=== PATIENT | male | born 1930 | race Caucasian/White ===

== ENCOUNTER 2017-09-10 07:49 | Day surgery (SDC) | payer MEDICARE ==
[~2017-09-10 07:49] MED LIST: Acetaminophen TAB* 325 MG PO PRN; Buffered Lidocaine 0.9% SYRIN* 5 ML/SYR SYRINGE INTRADERM ONE
[2017-09-10] MEDS ORDERED: Midazolam* 1 MG/ML 2 ML VIAL (2 MG) ONE (09:24)
[2017-09-10] MEDS ORDERED: Phenylephrine 2.5% OPTH.SOL* 2 ML BTL ONE (09:33)
[2017-09-10] MEDS ORDERED: Neomycin/Polymy/Dex OPHTH.OIN* 3.5 GM ONE (09:33)
[2017-09-10] MEDS ORDERED: Lidocaine 1% MPF* 2 ML VIAL ONE (09:33)
[2017-09-10] MEDS ORDERED: Buffered Lidocaine 0.9% SYRIN* 5 ML/SYR SYRINGE ONE (09:33)
[2017-09-10] MEDS ORDERED: Tropicamide 1% OPTH.SOL* BTL ONE (09:33)
[2017-09-10] MEDS ORDERED: Tetracaine 0.5% OPTH.SOL 4 ML* 1 DROP BTL ONE (09:33)
[2017-09-10] MEDS ORDERED: Flurbiprofen 0.03% OPTH.SOL* 2.5 ML BTL ONE (09:33)
[2017-09-10] MEDS ORDERED: Cyclopentolate 1% OPTH.SOL* 2 ML BTL ONE (09:33)
--- NOTE | 2017-09-10 09:57 | OP ---
DATE OF OPERATION/DATE OF DICTATION: 09/10/[address] - [facility] DATE OF : 1930. SURGEON: Dr. Maury Cervantes. DESIGN TEACHER: None. ANESTHESIOLOGIST: Sanjay Britt DO ANESTHESIA: Topical with intravenous sedation. PRE-OP DIAGNOSIS: Cataract, right eye. POST-OP DIAGNOSIS: Cataract, right eye. OPERATIVE PROCEDURE: Phacoemulsification and cataract extraction with posterior chamber intraocular lens implant, right eye. COMPLICATIONS: None. BLOOD LOSS: None. DESCRIPTION OF PROCEDURE: The patient was brought to the operating room and received a small amount of intravenous sedation. A drop of Tetracaine was placed in his right eye. He was prepped and draped in the usual sterile fashion for ophthalmic surgery and attention was directed to the right eye where a speculum was placed. A paracentesis was created at the 11 o'clock position and 0.1 cc of 1 percent preservative-free Lidocaine was injected into the anterior chamber followed by DisCoVisc. The eye was digitally stabilized while a 2.75 mm keratome was used to create a triplanar clear corneal incision at the 9 o'clock position. A continuous curvilinear capsulorrhexis was created with a cystotome and Utrata forceps. BSS on a cannula was used to hydrodissect the lens from the capsule. Phacoemulsification was performed in a divide-and- conquer technique to create four fragments which were removed. Residual cortical material was removed with irrigation and aspiration. DisCoVisc was used to inflate the capsular bag and an AUOOTO 20.5 diopter lens was folded and inserted into the capsular bag. DisCoVisc was removed using irrigation and aspiration. BSS on a cannula was used to hydrate the corneal stroma and seal the wound. At the end of the case the pupil was round and the lens was centered. The eye was of normal pressure and the wound was water tight. The speculum was removed and topical Maxitrol ointment was placed on the surface of the eye. The eye was closed, patched and shielded and the patient was sent to the recovery room in stable condition with post operative instructions and follow-up appointment given. [id number]/[id number] #: [id number] MTDD
[2017-09-10 10:04] VITALS: BP 103/88
== END 2017-09-10 10:09 | disposition home or self-care (01) ==
LOC: OREAST 07:49
PROVIDERS: ATTEND Ophthalmology
DX: H25.11 Age-related nuclear cataract, right eye (principal); I48.91 Unspecified atrial fibrillation; Z79.01 Long term (current) use of anticoagulants; I49.5 Sick sinus syndrome; E78.00 Pure hypercholesterolemia, unspecified; Z85.038 Personal history of other malignant neoplasm of large intestine; Z95.0 Presence of cardiac pacemaker; I10 Essential (primary) hypertension; G47.33 Obstructive sleep apnea (adult) (pediatric)
CPT/HCPCS: A9270-GY; J2250; V2632

== ENCOUNTER 2017-11-15 07:32 | Emergency (ER) | payer MEDICARE ==
[2017-11-15 11:24] LABS: ABS Basophils 0 10^3/ul (0-0.2); ABS Eosinophils 0 10^3/ul (0-0.6); ABS Monocytes 1.6 10^3/ul (0-0.8); ABS Neutrophils 3.7 10^3/ul (1.5-7.7); ABS Nucleated RBC 0 10^3/ul; Eosinophil % 0.1 % (0-6); Hematocrit 29 % (42-52); Hemoglobin 9.6 g/dl (14.0-18.0); Lymphocyte % 15.7 % (25-47); Mean Corpuscular HGB Conc 34 g/dl (31-36); Mean Corpuscular Hemoglobin 31 pg (27-31); Mean Corpuscular Volume 93 fL (80-94); Mean Platelet Volume 11 um3 (7.4-10.4); Nucleated Red Blood Cells % 0; Platelet Count 70 10^3/ul (150-450); Red Cell Distribution Width 14 % (10.5-15); White Blood Count 6.3 10^3/ul (3.5-10.8)
[2017-11-15 11:36] LABS: EGFR Non-African American 58.5 (>60)
[2017-11-15 11:46] LABS: INR 4.23 (0.77-1.02)
--- NOTE | 2017-11-15 13:22 | RAD ---
Indication: Left upper extremity swelling. Duplex Doppler sonography of the left upper extremity venous system was performed. The internal jugular veins demonstrates normal phasic flow. Subclavian vein demonstrates successful augmentation and normal phasic flow. The left basilic vein, brachial vein, axillary vein, cephalic vein, radial vein and ulnar vein appears patent and compressible. There is a large hypoechoic mass in the proximal left humerus with heterogeneous echotexture measuring 6.3 x 3.1 x 7.0 cm. This is consistent with a hematoma. IMPRESSION: No evidence of deep venous thrombosis of left upper extremity. Likely Hematoma in the left proximal humerus.
[2017-11-15 13:43] VITALS: BP 119/62
--- NOTE | 2017-11-15 16:16 | ED ---
Andres King Julia, scribed for Jovana Dong MD on 11/15/17 at 0915 . Upper Extremity Pain - HPI Summary HPI Summary: This patient is a 87 year old M BIBA to [facility] accompanied by his friends with a chief complaint of worsening severe swelling and bruising in his L shoulder and arm since three days ago when he heard a pop when reaching. Patient denies losing LUE motion, headache, hematuria, LE edema, blurry or double vision, back pain, abdominal pain, chest pain, SOB, bowel symptoms, ear ache, or sore throat.. Symptoms aggravated by nothing. Symptoms alleviated by nothing. Patient takes 6mg of Coumadin daily. Patient has a history of a-fib and has a pacemaker. - History of Current Complaint Chief Complaint: EDExtremityUpper Stated Complaint: LEFT ARM INJURY Time Seen by Provider: 11/15/17 07:41 Hx Obtained From: Patient Onset/Duration: Started Days Ago Timing: Constant Pain Location: Shoulder, Arm, Forearm Character: Unable to Describe - swelling and bruising Aggravating Factor(s): Nothing Alleviating Factor(s): Nothing Associated Signs & Symptoms: Positive: Swelling, Bruising - Allergies/Home Medications Allergies/Adverse Reactions: Allergies Allergy/AdvReac Type Severity Reaction Status Date / Time No Known Allergies Allergy Verified 11/15/17 07:38 PMH/Surg Hx/FS Hx/Imm Hx Endocrine/Hematology History: Denies: Hx Diabetes, Hx Systemic Lupus Erythematosus Cardiovascular History: Reports: Hx Atrial Fibrillation, Hx Pacemaker/ICD - 5/ /15, Hx Syncope, Hx Valvular Heart Disease - tricuspid regurgitation, Other Cardiovascular Problems/Disorders - per pt leak in heart valve and on coumadin for this Denies: Hx Congestive Heart Failure, Hx Hypertension Respiratory History: Reports: Hx Sleep Apnea GI History: Reports: Other GI Disorders - colon ca History: Denies: Hx Dialysis, Hx Renal Disease Musculoskeletal History: Denies: Hx Rheumatoid Arthritis Sensory History: Reports: Hx Cataracts - right, Hx Contacts or Glasses Denies: Hx Hearing Aid Opthamlomology History: Reports: Hx Cataracts - right, Hx Contacts or Glasses - Cancer History Cancer Type, Location and Year: colon ca, 2011 Hx Chemotherapy: No - Surgical History Surgery Procedure, Year, and Place: Colon ressection, 2011, [facility] [place]. Hernia repair , 1995, unknown Hx Anesthesia Reactions: No Infectious Disease History: No Infectious Disease History: Denies: Hx Clostridium Difficile, Hx Hepatitis, Hx Human Immunodeficiency Virus (HIV), Hx of Known/Suspected MRSA, Hx Shingles, Hx Tuberculosis, Hx Known/ Suspected VRE, Hx Known/Suspected VRSA, History Other Infectious Disease, Traveled Outside the [place] in Last 30 Days - Social History Alcohol Use: None Substance Use Type: Reports: None Hx Tobacco Use: Yes Smoking Status (MU): Former Smoker Amount Used/How Often: SOCIAL X 2-3 YEARS Review of Systems Negative: Blurred Vision Negative: Sore Throat, Ear Ache Negative: Chest Pain Negative: Shortness Of Breath Gastrointestinal: Negative - bowel symptoms Negative: Abdominal Pain Negative: hematuria Musculoskeletal: Negative - back pain and LE edema Positive: Edema - and bruising from L shoulder to wrist Negative: Headache All Other Systems Reviewed And Are Negative: No Physical Exam - Summary Physical Exam Summary: Appearance: Alert, conversive, nontoxic appearing Skin: Warm, dry, no mottling, no rashes, no contusions HEENT: EOMI, PERRL, moist mucous membranes Neck: No masses on the neck, supple Respiratory: Clear to auscultation, breath sounds present, no rales, no rhonchi , no wheezes Cardiovascular: RRR, pulses are symmetrical in both lower and upper extremities Abdomen: Soft, non-tender Bowel Sounds: Present Musculoskeletal: No CVA tenderness, no obvious deformity, moving all extremities in a grossly normal manner, with mild L arm extension restriction, bruising from L chest wall to L wrist Neurological: A&Ox3, CN II-XII Intact, moving all extremities symmetrically Psychiatric: Normal affect and mood Triage Information Reviewed: Yes Vital Signs On Initial Exam: Initial Vitals Temp Pulse Resp BP Pulse Ox 96.8 F 80 16 130/54 99 11/15/17 07:39 11/15/17 07:39 11/15/17 07:39 11/15/17 07:39 11/15/17 07:39 Vital Signs Reviewed: Yes - [place] Coma Scale Coma Scale Total: 15 Diagnostics - Vital Signs Vital Signs Temp Pulse Resp BP Pulse Ox 11/15/17 07:39 96.8 F 80 16 130/54 99 - Laboratory Result Diagrams: 11/15/17 11:15 11/15/17 11:15 Lab Statement: Any lab studies that have been ordered have been reviewed, and results considered in the medical decision making process. - Additional Comments Diagnostic Additional Comments: Venous US to RUE reveals No evidence of deep venous thrombosis of left upper extremity. Likely Hematoma in the left proximal humerus. Ed Physician has reviewed this report. Re-Evaluation - Re-Evaluation 1 Re-Evaluation Time: 10:40 Change: Unchanged Comment: Labs not drawn yet due to US in progress. 2 Re-Evaluation Time: 13:00 Change: Unchanged Comment: Patient was informed of INR levels and was instructed to disocntinue coumadin use for 2 days. Pt was updated and awaiting US report. Course/Dx - Course Course Of Treatment: Patient presented with severe ecchymosis from L chest wall to L wrist after shoulder injury three days ago. Patient currently take 6mg of coumadin daily. INR revealed 4.23, and patient was instructed to discontinue coumadin use for 2 days. Venous US reveals no concern for DVT. - Diagnoses Provider Diagnoses: Hematoma, Elevated INR Discharge - Discharge Plan Condition: Stable Disposition: HOME Patient Education Materials: Elevated INR (ED), Hematoma (ED) Referrals: Sonia Avendaño MD [Primary Care Provider] - Additional Instructions: HOLD your coumadin for 2 days. get your INR rechecked on Saturday. Keep your left arm elevated. you may use cushions or a pillow to help elevate it above the level of your heart. return if worse or any new symptoms. you may take tylenol for pain. The documentation as recorded by the Andres cesar Julia accurately reflects the service I personally performed and the decisions made by me, Jovana Dong MD.
== END 2017-11-15 13:44 | disposition home or self-care (01) ==
LOC: ED 07:32
DX: R60.9 Edema, unspecified (principal); Z87.891 Personal history of nicotine dependence; S20.212A Contusion of left front wall of thorax, initial encounter; Z79.01 Long term (current) use of anticoagulants; X58.XXXA Exposure to other specified factors, initial encounter; Y92.9 Unspecified place or not applicable
CPT/HCPCS: 36415; 80053; 85025; 85610; 85730; 99282

== ENCOUNTER 2017-11-17 05:27 | Emergency (ER) | payer MEDICARE ==
--- NOTE | 2017-11-17 06:37 | ED ---
Oleg King Rebecca, scribed for Benigno Cardozo MD on 11/17/17 at 0537 . Lower Extremity - HPI Summary HPI Summary: Pt is an 87 y/o M BIBA who presents to ED c/o L knee pain. Pt reports that this morning, he was getting up from the couch when he "made a wrong move" and "had a terrible pain." Reports that "something snapped." On arrival, pain is resolved , currently ranked 0/10. Sx aggravated by movement, alleviated by rest. Denies any other symptoms. Confirms he is able to bear weight and was able to walk outside. - History of Current Complaint Chief Complaint: EDExtremityLower Stated Complaint: LT KNEE PAIN Time Seen by Provider: 11/17/17 05:32 Hx Obtained From: Patient Mechanism Of Injury: Other - "wrong move" Onset of Pain: Prior to Arrival Severity Initially: Severe Severity Currently: None Pain Intensity: 0 Pain Scale Used: 0-10 Numeric Location: Is Discrete @ - L knee Associated Signs And Symptoms: Positive: Negative Aggravating Factor(s): Movement Alleviating Factor(s): Rest Able to Bear Weight: Yes - Allergies/Home Medications Allergies/Adverse Reactions: Allergies Allergy/AdvReac Type Severity Reaction Status Date / Time No Known Allergies Allergy Verified 11/17/17 05:32 PMH/Surg Hx/FS Hx/Imm Hx Endocrine/Hematology History: Denies: Hx Diabetes, Hx Systemic Lupus Erythematosus Cardiovascular History: Reports: Hx Atrial Fibrillation, Hx Pacemaker/ICD - 5/15, Hx Syncope, Hx Valvular Heart Disease - tricuspid regurgitation, Other Cardiovascular Problems/Disorders - per pt leak in heart valve and on coumadin for this Denies: Hx Congestive Heart Failure, Hx Hypertension Respiratory History: Reports: Hx Sleep Apnea GI History: Reports: Other GI Disorders - colon ca History: Denies: Hx Dialysis, Hx Renal Disease Musculoskeletal History: Denies: Hx Rheumatoid Arthritis Sensory History: Reports: Hx Cataracts - right, Hx Contacts or Glasses Denies: Hx Hearing Aid Opthamlomology History: Reports: Hx Cataracts - right, Hx Contacts or Glasses - Cancer History Cancer Type, Location and Year: colon ca, 2011 Hx Chemotherapy: No - Surgical History Surgery Procedure, Year, and Place: Colon ressection, 2011, [facility] [place]. Hernia repair , 1995, unknown Hx Anesthesia Reactions: No Infectious Disease History: No Infectious Disease History: Denies: Hx Clostridium Difficile, Hx Hepatitis, Hx Human Immunodeficiency Virus (HIV), Hx of Known/Suspected MRSA, Hx Shingles, Hx Tuberculosis, Hx Known/ Suspected VRE, Hx Known/Suspected VRSA, History Other Infectious Disease, Traveled Outside the [place] in Last 30 Days - Family History Known Family History: Positive: Cardiac Disease, Hypertension, Diabetes - Social History Alcohol Use: None Substance Use Type: Reports: None Hx Tobacco Use: Yes Smoking Status (MU): Former Smoker Amount Used/How Often: SOCIAL X 2-3 YEARS Review of Systems Negative: Fever Positive: Other - L knee pain All Other Systems Reviewed And Are Negative: Yes Physical Exam - Summary Physical Exam Summary: VITAL SIGNS: Reviewed. GENERAL: Patient is a well-developed and nourished male who is lying comfortable in the stretcher. Patient is not in any acute respiratory distress. HEAD AND FACE: No signs of trauma. No ecchymosis, hematomas or skull depressions. No sinus tenderness. EYES: PERRLA, EOMI x 2, No injected conjunctiva, no nystagmus. EARS: Hearing grossly intact. Ear canals and tympanic membranes are within normal limits. MOUTH: Oropharynx within normal limits. NECK: Supple, trachea is midline, no adenopathy, no JVD, no carotid bruit, no c- spine tenderness, neck with full ROM. CHEST: Symmetric, no tenderness at palpation LUNGS: Clear to auscultation bilaterally. No wheezing or crackles. CVS: Regular rate and rhythm, S1 and S2 present, no murmurs or gallops appreciated. ABDOMEN: Soft, non-tender. No signs of distention. No rebound no guarding, and no masses palpated. Bowel sounds are normal. EXTREMITIES: FROM in all major joints, no edema, no cyanosis or clubbing. L knee is swollen, but there is no effusion with FROM and no tenderness. NEURO: Alert and oriented x 3. No acute neurological deficits. Speech is normal and follows commands. SKIN: Dry and warm, pale. Coagulopathy of the left arm. Triage Information Reviewed: Yes Vital Signs On Initial Exam: Initial Vitals Temp Pulse Resp BP Pulse Ox 97.3 F 108 16 131/72 100 11/17/17 05:30 11/17/17 05:30 11/17/17 05:30 11/17/17 05:30 11/17/17 05:30 Vital Signs Reviewed: Yes Diagnostics - Vital Signs Vital Signs Temp Pulse Resp BP Pulse Ox 11/17/17 05:30 97.3 F 108 16 131/72 100 - Laboratory Lab Statement: Any lab studies that have been ordered have been reviewed, and results considered in the medical decision making process. - Radiology L Knee XR Xray Interpretation: No Acute Changes - No fracture. Radiology Interpretation Completed By: ED Physician Re-Evaluation - Re-Evaluation First Eval Re-Evaluation Time: 06:28 Change: Improved Comment: Pt is feeling better and able to ambulate at his baseline. Lower Extremity Course/Dx - Course Assessment/Plan: Pt is an 87 y/o M BIBA who presents to ED c/o L knee pain. Pt reports that this morning, he was getting up from the couch when he "made a wrong move" and "had a terrible pain." On arrival, pain is resolved, currently ranked 0/10. Sx aggravated by movement, alleviated by rest. Confirms he is able to bear weight and was able to walk outside. L knee XR reveals no fracture. Pt will be D/C to home with Dx of likely muscle spasms. He understands and agrees. - Diagnoses Provider Diagnoses: Muscle spasm Discharge - Discharge Plan Condition: Stable Disposition: HOME Patient Education Materials: Muscle Spasm (ED) Referrals: Sonia Avendaño MD [Primary Care Provider] - 3 Days Additional Instructions: RETURN TO EMERGENCY DEPARTMENT FOR ANY NEW OR WORSENING SYMPTOMS The documentation as recorded by the Oleg cesar Rebecca accurately reflects the service I personally performed and the decisions made by me, Benigno Cardozo MD.
[2017-11-17 07:38] VITALS: BP 0/0
--- NOTE | 2017-11-17 08:30 | RAD ---
HISTORY: Left knee pain COMPARISONS: None VIEWS: 4, Frontal, lateral, axial, and oblique views of the left knee FINDINGS: BONE DENSITY: Normal. BONES: There is no displaced fracture. JOINTS: There is mild patellofemoral osteophyte formation. There is mild medial and lateral compartment joint space narrowing. There is no suprapatellar joint effusion or lipohemarthrosis. ALIGNMENT: There is no dislocation. SOFT TISSUES: Unremarkable. OTHER FINDINGS: None. IMPRESSION: MILD OSTEOARTHRITIS. NO ACUTE OSSEOUS INJURY. IF SYMPTOMS PERSIST, RECOMMEND REPEAT IMAGING.
== END 2017-11-17 07:37 | disposition home or self-care (01) ==
LOC: ED 05:27
DX: M62.838 Other muscle spasm (principal); Z87.891 Personal history of nicotine dependence; M17.12 Unilateral primary osteoarthritis, left knee
CPT/HCPCS: 99281

== ENCOUNTER 2017-11-24 09:50 | Inpatient (IN) | payer MEDICARE ==
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
[2017-11-24 12:03] LABS: Hematocrit 28 % (42-52); Hemoglobin 9.1 g/dl (14.0-18.0); Mean Corpuscular HGB Conc 33 g/dl (31-36); Mean Corpuscular Hemoglobin 32 pg (27-31); Mean Corpuscular Volume 96 fL (80-94); Mean Platelet Volume 9 um3 (7.4-10.4); Platelet Count 141 10^3/ul (150-450); Red Blood Count 2.88 10^6/ul (4.0-5.4); Red Cell Distribution Width 15 % (10.5-15)
[2017-11-24 12:15] LABS: Urine Appearance Clear; Urine Blood 1+ (Negative); Urine Color Yellow; Urine Ketones Negative (Negative); Urine Protein Negative (Negative); Urine Specific Gravity 1.018 (1.010-1.030); Urine Urobilinogen Negative (Negative)
[2017-11-24 12:18] LABS: EGFR Non-African American 67.7 (>60)
[2017-11-24 12:40] LABS: INR 1.15 (0.77-1.02)
[2017-11-24 12:47] LABS: ABS Basophils 0 10^3/ul (0-0.2); ABS Eosinophils 0 10^3/ul (0-0.6); ABS Lymphocytes 0.9 10^3/ul (1.0-4.8); ABS Monocytes 1.6 10^3/ul (0-0.8); ABS Neutrophils 3.4 10^3/ul (1.5-7.7); ABS Nucleated RBC 0 10^3/ul; Eosinophil % 0.3 % (0-6); Lymphocyte % 14.5 % (25-47); Nucleated Red Blood Cells % 0.1
--- NOTE | 2017-11-24 13:41 | RAD ---
INDICATION: Left leg numbness COMPARISON: CT brain February 16, 2016 TECHNIQUE: Noncontrast axial source images were acquired from the skull base to the vertex. FINDINGS: Ventricles/sulci: The ventricles and cisterns are normal in size and configuration for age. Brain parenchyma: There is a nonhemorrhagic subacute infarct in the left lentiform nucleus. There is no intracranial mass effect. There are additional areas of underlying chronic microvascular ischemic change in the periventricular and subcortical white matter. Intracranial hemorrhage:None. Extra-axial spaces: There are no abnormal extra axial fluid collections or evidence of extra-axial mass. Calvarium: There is no calvarial fracture or other calvarial abnormality. Scalp: There is no evidence of scalp or extracalvarial soft tissue abnormality. Paranasal sinuses/mastoid: The paranasal sinuses and mastoid air cells are clear. Other: None. IMPRESSION: Subacute nonhemorrhagic infarct left lentiform nucleus. Underlying chronic microvascular change
--- NOTE | 2017-11-24 14:03 | RAD ---
INDICATION: Dyspnea on exertion COMPARISON: November 21, 2017 TECHNIQUE: PA and lateral dual-energy views were obtained. FINDINGS: Bones/Soft Tissues: There are no acute bony findings. There is left-sided cardiac pacemaker Cardiomediastinal: The cardiomediastinal silhouette is normal. The pulmonary vascularity is normal. Lungs: There are no infiltrates. There is mild hyperinflation. Pleura: There are no pleural effusions. Other: None IMPRESSION: HYPERINFLATION. NO ACTIVE DISEASE.
--- NOTE | 2017-11-24 14:48 | RAD ---
INDICATION: Pain and swelling. COMPARISON: November 15, 2017 TECHNIQUE: Duplex interrogation of the Lowerextremity was performed. FINDINGS: Deep veins: The visualized jugular, visualized subclavian, axillary, brachial, radial, and ulnar are patent. There is normal compressibility, augmentation, and phasic flow. Superficial veins: There are no findings of superficial thrombophlebitis. The cephalic and basilic veins are patent Popliteal fossa:There is no evidence of a popliteal cyst. Soft tissues:There is subcutaneous edema. The previously identified hematoma was not imaged today. IMPRESSION: No evidence of deep venous thrombosis
[2017-11-24] MEDS ORDERED: Aspirin Low Dose CHEW TAB* 81 MG PO SCH (15:00)
[2017-11-24] MEDS: Tamsulosin CAP* 0.4 MG PO SCH (17:03)
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
[2017-11-25 06:20] LABS: Hematocrit 28 % (42-52); Hemoglobin 9.2 g/dl (14.0-18.0); Mean Corpuscular HGB Conc 33 g/dl (31-36); Mean Corpuscular Hemoglobin 31 pg (27-31); Mean Corpuscular Volume 95 fL (80-94); Mean Platelet Volume 10 um3 (7.4-10.4); Platelet Count 134 10^3/ul (150-450); Red Blood Count 2.93 10^6/ul (4.0-5.4); Red Cell Distribution Width 16 % (10.5-15); White Blood Count 5.6 10^3/ul (3.5-10.8)
[2017-11-25 07:32] LABS: ABS Basophils 0 10^3/ul (0-0.2); ABS Eosinophils 0 10^3/ul (0-0.6); ABS Lymphocytes 1.2 10^3/ul (1.0-4.8); ABS Monocytes 1.5 10^3/ul (0-0.8); ABS Neutrophils 2.8 10^3/ul (1.5-7.7); ABS Nucleated RBC 0 10^3/ul; Eosinophil % 0.3 % (0-6); Lymphocyte % 21.1 % (25-47); Nucleated Red Blood Cells % 0
--- NOTE | 2017-11-25 08:58 | RAD ---
HISTORY: Subacute infarct COMPARISONS: CT dated November 24, 2017 TECHNIQUE: The following sequences were obtained of the head: Sagittal T1-weighted images, axial T2-weighted images, axial FLAIR images, axial susceptibility weighted images, axial T1-weighted images. Additionally, axial diffusion-weighted images were obtained with calculated apparent diffusion coefficients. Additionally, sagittal, coronal, and axial T1-weighted images were obtained after contrast enhancement with a gadolinium-based intravenous contrast agent. FINDINGS: HEMORRHAGE/INFARCT: There is high T1 and high T2 signal lesion with susceptibility artifact within the left basal ganglia corresponding to the area of previous infarction, consistent with hemorrhagic conversion. The area of hemorrhage measures approximately 1.3 cm in size within the left basal ganglia. Elsewhere, there is no hemorrhage or acute infarction. MASSES/SHIFT: There is no mass or shift. EXTRA-AXIAL SPACES/MENINGES: There are no extra-axial fluid collections. SULCI AND VENTRICLES: There is diffuse and proportional enlargement of the sulci and ventricles. CEREBRUM: As noted above, there is a focus of hemorrhage within the left basal ganglia. There is multifocal elevated T2/FLAIR signal in the periventricular and subcortical white matter. BRAINSTEM: There are no focal parenchymal abnormalities. CEREBELLUM: There are no focal parenchymal abnormalities. The cerebellar tonsils are normal in size and position. SELLA: The sella is normal. PINEAL: The pineal region is clear. CP ANGLE/TEMPORAL BONES: The labyrinthine structures are grossly normal. VESSELS: Normal flow-voids are noted within the visualized vertebral vasculature. DIFFUSION ABNORMALITIES: There is restricted diffusion within the left basal ganglia consistent with subacute infarct. PARANASAL SINUSES/MASTOIDS: The paranasal sinuses are clear. ORBITS: The orbits are unremarkable. BONES AND SOFT TISSUE: No bone or soft tissue abnormalities are noted. OTHER: None IMPRESSION: 1. THERE HAS BEEN HEMORRHAGIC CONVERSION OF THE LEFT BASAL GANGLIA INFARCT. 2. DIFFUSE INVOLUTIONAL CHANGE. 3. NONSPECIFIC WHITE MATTER CHANGES, SUGGESTIVE OF CHRONIC SMALL VESSEL ISCHEMIA. PRELIMINARY FINDINGS WERE DISCUSSED WITH DR. ANDERSON AT APPROXIMATELY 8:55 AM ON NOVEMBER 25, 2017.
[2017-11-25] MEDS: Metoprolol Tartrate TAB* 25 MG PO SCH (13:06)
[2017-11-25] MEDS: Tamsulosin CAP* 0.4 MG PO SCH (13:06)
[2017-11-25] MEDS: Aspirin Low Dose CHEW TAB* 81 MG PO SCH (13:06)
--- NOTE | 2017-11-25 15:36 | ECHO ---
Patient: PO GONZALEZ [facility] Rec#: [id number] : 1930 Date: 11/25/2017 Age: 87y Height: 172.7 cm / 68.0 in Weight: 81.7 kg / 180.1 lbs Sex: M BSA: 2 Room#: [facility] Admit Date#: 11/24/2017 Type: Inpatient Referring: Dank Cordero Reading: Calvin Acosta MD Transformer Tester: Magui Spann RN RDCS CC: Sonia Avendaño MD CC: Lita Corona MD Transthoracic Echocardiogram Indication: Dyspnea on exertion BP: 102/37 HR: 101 Rhythm: A-Fib Findings History: A. fib, pacemaker, HLD, syncope, sleep apnea, colon cancer Technical Comments: The study quality is fair. Completed at 1325. Left Ventricle: The left ventricular chamber size is normal. Mild concentric left ventricular hypertrophy is observed. Global left ventricular wall motion and contractility are within normal limits. There is normal left ventricular systolic function. The estimated ejection fraction is 55-60%. The assessment of diastolic function is non-diagnostic. Left Atrium: The left atrium is severely dilated. Right Ventricle: The right ventricular cavity size is normal. The right ventricular global systolic function is normal. A pacemaker wire is visualized in the right ventricle. Right Atrium: The right atrial cavity size is severely dilated. A pacemaker wire is visualized in the right atrium. Aortic Valve: The aortic valve is trileaflet. The aortic valve leaflets are mildly thickened. There is mild to moderate aortic regurgitation. There is no evidence of aortic stenosis. Mitral Valve: The mitral valve leaflets are mildly thickened. There is mild to moderate mitral regurgitation. There is no evidence of mitral stenosis. Tricuspid Valve: The tricuspid valve leaflets are normal. There is moderate tricuspid regurgitation. No pulmonary hypertension is noted. There is no tricuspid stenosis. Pulmonic Valve: The pulmonic valve structure is not well visualized. There is trace to mild pulmonic regurgitation. There is no pulmonic stenosis. Pericardium: There is no significant pericardial effusion. Aorta: There is mild dilatation of the ascending aorta. There is no dilatation of the aortic arch. There is no dilation of the aortic root. Pulmonary Artery: The main pulmonary artery is not well visualized. Venous: The inferior vena cava appears normal in size. There is a greater than 50% respiratory change in the inferior vena cava dimension. Summary: There are no significant changes when compared to the previous study done on 02/17/16 Conclusions Global left ventricular wall motion and contractility are within normal limits. There is normal left ventricular systolic function. The estimated ejection fraction is 55-60%. The right ventricular global systolic function is normal. There is mild to moderate aortic regurgitation. There is mild to moderate mitral regurgitation. There is moderate tricuspid regurgitation. No pulmonary hypertension is noted. There is no significant pericardial effusion. The left atrium is severely dilated. There are no significant changes when compared to the previous study done on 02/17/16 Measurements Name Value Normal Range RVDdMajor (2D) 3.1 cm (2.2 - 4.4) RAd ISD 4CH 7.4 cm (3.4 - 4.9) RA (A4C)W 5.6 cm (2.9 - 4.6) IVSd (2D) 1.1 cm (0.6 - 1) LVPWd (2D) 1.1 cm (0.6 - 1) LVIDd (2D) 4 cm (3.6 - 5.4) LVIDs (2D) 2.9 cm - LV FS (2D) 28 % (25 - 45) Aortic Annulus 2 cm (1.4 - 2.6) Ao root diameter (2D) 3.2 cm (2.1 - 3.5) Ascending Ao 3.6 cm (2.1 - 3.4) Aortic arch 2.2 cm (1.8 - 3.4) LA dimension (AP) 2D 4.6 cm (2.3 - 3.8) LAd ISD 4CH 7 cm (2.9 - 5.3) LA ISD 4CH W 5.6 cm (2.5 - 4.5) Name Value Normal Range LA ESV SP 4CH (A/L) 110 ml - LA ESV SP 2CH (A/L) 108 ml - LA ESV BP (A/L) 110 ml - LA ESV BP (A/L) index 56 ml/m2 - LA ESV SP 4CH (MOD) 104 ml - LA ESV SP 2CH (MOD) 105 ml - Name Value Normal Range MV E-wave Vmax 1.1 m/sec - MV deceleration time 177 msec - LV septal e' Vmax 0.12 m/sec - LV lateral e' Vmax 0.13 m/sec - LV E:e' septal ratio 9.2 ratio - LV E:e' lateral ratio 8.5 ratio - Name Value Normal Range AV Vmax 1.6 m/sec - AV VTI 31.4 cm - AV peak gradient 9.7 mmHg - AV mean gradient 6.2 mmHg - LVOT Vmax 0.86 m/sec - LVOT VTI 16.6 cm - LVOT peak gradient 3 mmHg - LVOT mean gradient 1.8 mmHg - AR PHT 439 msec - RENE Vmax 0.59 m/sec - Name Value Normal Range TR Vmax 2.6 m/sec - TR peak gradient 27 mmHg - RAP 3 mmHg - RVSP 30 mmHg - IVC diameter 1.7 cm - Name Value Normal Range PV Vmax 0.76 m/sec -
--- NOTE | 2017-11-25 18:40 | PN ---
Subjective Date of Service: 11/25/17 Interval History: CTH with subacute CVA, MRI this AM showed hemorrhagic conversion. was not dyspneic with exertion with PT. ECHO repeated and unchanged. Objective Active Medications: Aspirin (Aspirin Low Dose Tab*) 81 mg PO DAILY [facility] Last Admin: 11/25/17 13:06 Dose: 81 mg Metoprolol Tartrate (Lopressor Tab*) 37.5 mg PO QAM [facility] Last Admin: 11/25/17 13:06 Dose: 37.5 mg Tamsulosin HCl (Flomax Cap*) 0.4 mg PO DAILY [facility] Last Admin: 11/25/17 13:06 Dose: 0.4 mg Vital Signs - 8 hr 11/25/17 11/25/17 11:05 15:45 Temperature 97.8 F 98.2 F Pulse Rate 101 78 Respiratory 16 20 Rate Blood Pressure 125/56 101/57 (mmHg) O2 Sat by Pulse 100 100 Oximetry Oxygen Devices in Use Now: None Appearance: NAD Eyes: No Scleral Icterus, PERRLA Ears/Nose/Mouth/Throat: NL Teeth, Lips, Gums, Mucous Membranes Moist Neck: NL Appearance and Movements; NL JVP, Trachea Midline Respiratory: Symmetrical Chest Expansion and Respiratory Effort, Clear to Auscultation Cardiovascular: - - irregularly irregular, no m/r/g Abdominal: NL Sounds; No Tenderness; No Distention, No Hepatosplenomegaly Extremities: No Clubbing, Cyanosis, - - nonpitting edema in left hand. Skin: No Nodules or Sclerosis, - - ecchymosis abdomen, left arm(improving). Neurological: Alert and Oriented x 3, NL Sensation, NL Muscle Strength and Tone Nutrition: Taking PO's Result Diagrams: 11/25/17 05:36 11/24/17 11:40 Additional Lab and Data: Laboratory Results - last 24 hr 11/25/17 11/25/17 11/25/17 05:36 05:36 05:36 WBC 5.6 RBC 2.93 L Hgb 9.2 L Hct 28 L MCV 95 H MCH 31 MCHC 33 RDW 16 H Plt Count 134 L MPV 10 Neut % (Auto) 50.5 Lymph % (Auto) 21.1 L [place] % (Auto) 27.8 H Eos % (Auto) 0.3 Baso % (Auto) 0.3 Absolute Neuts (auto) 2.8 Absolute Lymphs (auto) 1.2 Absolute Monos (auto) 1.5 H Absolute Eos (auto) 0 Absolute Basos (auto) 0 Absolute Nucleated RBC 0 Nucleated RBC % 0 Hemoglobin A1c 5.1 Triglycerides 83 Cholesterol 135 LDL Cholesterol 83 HDL Cholesterol 35.6 Assess/Plan/Problems-Billing Assessment: 87 yo male PMH pAfib until 12 days prior to admission on coumadin, but developed hematoma left UE while INR 4, SSS s/p PPM (MRI safe), EDWARD p/w OJ. Found to have left basal ganglia subacute CVA on CTH with some hemorrhagic conversion on MRI. - Patient Problems (1) CVA (cerebrovascular accident) Current Visit: Yes Status: Acute Code(s): I63.9 - CEREBRAL INFARCTION, UNSPECIFIED SNOMED Code(s): 303962030 Comment: continue aspirin 81mg daily appreciate neurology recommendations Dr. Navarro to discuss with Dr. Corona about possibility of Eliquis starting 2 weeks after suspected hemorrhagic conversion, approximately 7 days from now based off imaging findings. repeat CTH in 11/26 AM to see if progression PT -> did well. no needs. (2) Afib Current Visit: No Status: Acute Code(s): I48.91 - UNSPECIFIED ATRIAL FIBRILLATION SNOMED Code(s): 05418048 Comment: - restarted metoprolol 37.5mg BID - anticoagulation planned to restart in about 7 days. - tele - replete lytes prn Mg>2, K?4 (3) S/P cardiac pacemaker procedure Current Visit: No Status: Acute Priority: High Onset Date: 03/08/16 Code (s): Z95.0 - PRESENCE OF CARDIAC PACEMAKER SNOMED Code(s): 292143080 Comment: s/p single chamber pacemaker implantation (4) Hematoma Current Visit: Yes Status: Acute Code(s): T14.8XXA - OTHER INJURY OF UNSPECIFIED BODY REGION, INITIAL ENCOUNTER SNOMED Code(s): 042194897 Comment: left arm, stable, slowly improving. in setting of supratherapeutic INR. (5) JO (dyspnea on exertion) Current Visit: Yes Status: Acute Code(s): R06.09 - OTHER FORMS OF DYSPNEA SNOMED Code(s): 53213212 Comment: likely multifactorial 2/2 anemia, change in BB. ECHO with pEF. no pHTN. TVR has improved to moderate from severe. Status and Disposition: medicine inpatient. likely d/c 11/26 after CTH Attending: Dank Cordero
[2017-11-26 06:00] LABS: Hematocrit 28 % (42-52); Hemoglobin 9.6 g/dl (14.0-18.0); Mean Corpuscular HGB Conc 34 g/dl (31-36); Mean Corpuscular Hemoglobin 32 pg (27-31); Mean Corpuscular Volume 94 fL (80-94); Mean Platelet Volume 10 um3 (7.4-10.4); Platelet Count 143 10^3/ul (150-450); Red Blood Count 2.99 10^6/ul (4.0-5.4); Red Cell Distribution Width 16 % (10.5-15); White Blood Count 6.3 10^3/ul (3.5-10.8)
[2017-11-26 06:28] LABS: ABS Basophils 0 10^3/ul (0-0.2); ABS Eosinophils 0 10^3/ul (0-0.6); ABS Lymphocytes 1.1 10^3/ul (1.0-4.8); ABS Monocytes 1.7 10^3/ul (0-0.8); ABS Neutrophils 3.3 10^3/ul (1.5-7.7); ABS Nucleated RBC 0 10^3/ul; Eosinophil % 0.3 % (0-6); Lymphocyte % 18.3 % (25-47); Nucleated Red Blood Cells % 0
--- NOTE | 2017-11-26 09:01 | RAD ---
INDICATION: Left basal ganglia infarct COMPARISON: MRI brain November 25, 2017; CT brain November 24, 2007 TECHNIQUE: Noncontrast axial source images were acquired from the skull base to the vertex. FINDINGS: Ventricles/sulci: There is cortical atrophy with compensatory dilatation of the CSF spaces. Brain parenchyma: There is no new focal parenchymal finding, evidence of intracranial mass, or intracranial mass effect. There is a subacute left basal ganglia infarct appearing essentially unchanged on the CT. There is no CT evidence of hemorrhage but the MR examination is more sensitive in detecting subacute hemorrhage. There is mild underlying chronic microvascular ischemic change. Intracranial hemorrhage: Not visible on CT but documented on recent MR imaging. Extra-axial spaces: There are no abnormal extra axial fluid collections or evidence of extra-axial mass. Calvarium: There is no calvarial fracture or other calvarial abnormality. Scalp: There is no evidence of scalp or extracalvarial soft tissue abnormality. Paranasal sinuses/mastoid: The paranasal sinuses and mastoid air cells are clear. Other: None. IMPRESSION: Left basal ganglia infarct, unchanged
[2017-11-26] MEDS: Metoprolol Tartrate TAB* 25 MG PO SCH (09:13)
[2017-11-26] MEDS: Aspirin Low Dose CHEW TAB* 81 MG PO SCH (09:13)
[2017-11-26] MEDS: Tamsulosin CAP* 0.4 MG PO SCH (09:14)
--- NOTE | 2017-11-26 13:13 | PN ---
CC: Dr. Avendaño; Dr. Corona NEUROLOGY FOLLOWUP: DATE OF FOLLOWUP: 11/25/17 HISTORY: I received sign out on the patient from Dr. Liu last evening. 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 He apparently had this bleeding into his arm in the setting of a supratherapeutic INR to 4.23 on 11/15/17. He denies any history of right-sided weakness, difficulty speaking, difficulty swallowing, or no troubles with his balance over the past couple of weeks. He was admitted to the hospital because of shortness of breath, which seems to be improved now. In his workup, he had a CT of the brain which showed this subacute infarction and today this was followed up with an MRI scan of the brain, which showed an area of hemorrhagic transformation which is bright on both T1 and T2 sequences suggesting late subacute finding, at least 1 week old. On my evaluation today, the patient is most concerned about the swelling in his left arm as well as the bruising in his torso. He denies any pain in that extremity. He continues to deny any symptoms of stroke. He has no headache. We had a discussion about optimal timing of reinitiation of anticoagulation given these bleeding events that he has had. He reports that he has been on warfarin for many, many years now. MEDICATIONS: 1. Aspirin 81 mg daily. 2. Metoprolol 37.5 mg q.a.m. 3. Flomax 0.4 mg daily. I note that Dr. Codrero did get in touch with me to enquire whether the patient should be continued on aspirin in the setting of this subacute hemorrhagic transformation and given the age of bleeding, I thought that this was fine and likely the benefits outweighed the risks. PHYSICAL EXAM: Temperature 97.8, blood pressure 125/56, heart rate 101, oxygen saturation 100% on room air. On examination, he is a very pleasant [place] man in no acute distress. He is a bit anxious about what this may mean for his future prognosis in terms of whether he can expect to become more disabled in the next 5 years or so. His heart is in an irregular rhythm. His lungs were clear to auscultation. There were no obvious carotid bruits. His extremity exam is notable for swelling throughout the left upper extremity with associated warmth and resolving ecchymosis throughout. In addition, across his abdomen and left flank, there is resolving ecchymosis as well, which is extensive. On neurologic examination, he is fully awake, alert, and oriented. There is no dysarthria or aphasia. Pupils are equal, round, and reactive from 3 to 2 mm bilaterally. Versions are full without nystagmus. Sanches are full to confrontation. Facial sensation and musculature is essentially full and symmetric, though I question whether there is some very slight facial asymmetry at rest on the right. His hearing is intact to voice. The palate elevates symmetrically and the tongue is midline. Shoulder shrug is full and symmetric. On motor examination, there is no pronator drift. Strength is full proximally and distally though he has difficulty gripping on the left secondary to swelling. Sensation is intact to light touch in the upper and lower extremities. Reflexes are 2+ in the upper extremities as well as at the knees. He has a narrow based gait with somewhat decreased clearance of his feet bilaterally when walking. DIAGNOSTIC STUDIES/LAB DATA: INR has not been rechecked today, but yesterday was 1.15. His CBC is stable with hematocrit of 28 and hemoglobin of 9.2 with platelet count of 134, which is slightly lower than 141 yesterday. Chemistry panel was not repeated. The hemoglobin A1c is 5.1. Fasting lipid profile today shows triglycerides of 83, cholesterol 135, LDL 83, and HDL of 35.6. Brain MRI as mentioned was obtained and personally reviewed and shows an area in the left basal ganglia, which corresponds to the previously noted area of infarction which has high T1 and T2 signal with associated susceptibility artifact consistent with hemorrhagic conversion of an ischemic infarct. The area of hemorrhage measures approximately 1.3 cm in size. Based on the imaging characteristics, this is most likely a late subacute finding, i.e., at least somewhere in the range of 7 to 10 days old. Otherwise, there is an age- expected atrophy and some evidence of small vessel ischemia. Transthoracic echocardiogram showed a normal ejection fraction of 55% to 60% with mild LVH and a severely dilated left atrium. The right atrium is also severely dilated and there is a pacemaker wire visualized. There are no significant changes noted from the previous study in January 2016. IMPRESSION AND PLAN: Mr. Henderson is an 87-year-old man with a history of atrial fibrillation, off Coumadin, secondary to recent bleeding complications involving his arm and torso in the setting of supratherapeutic INR. There is an incidental finding of a left basal ganglia infarct, which is also known to have associated hemorrhagic conversion. He does not have any significant symptoms on his exam at all of this infarction, though possibly some asymmetry in the right side of his face. Going forward, we will need to discuss the risks and benefits as well as timing of restarting anticoagulation. His CHADS2- VASc is 4, which indicates that he is at high risk of further ischemic stroke secondary to his atrial fibrillation, approximately 4% per year. It is difficult to know the optimal timing in terms of restarting anticoagulation as there is limited data in this regard and this becomes especially so when considering a NOAC. However, I think that from a safety profile standpoint, it makes more sense to start a NOAC such as Eliquis, which overall can have lower risk of bleeding. Further limiting our decision of when and which anticoagulation to restart, is the fact that he does not have a prescription drug plan. I put in a consult for Social Work to discuss this with him tomorrow. If it is ultimately decided on starting Eliquis at some point, and he does not have a prescription drug plan, then he may qualify for one of the prescription savings cards from the company. I would consider restarting his anticoagulation approximately 2 weeks from the presumed onset of this bleeding, which at least is probably in the range of 7 days. Therefore, I would potentially consider restarting in approximately a week, but I would like to discuss this further with Dr. Avendaño as well as his helicopter specialist, Dr. Corona. I note that Dr. Liu also made note of vibration loss that is greater than expected for age with preservation of reflexes, which raises the question of myelopathy in her mind; however, we did not discuss this further today. TIME SPENT: Over 25 minutes was spent in direct [id number] patient care with a total of 45 minutes was spent. [id number]/[facility] #: [id number] ANNMARIE
[2017-11-26 15:52] VITALS: BP 118/61
--- NOTE | 2017-11-27 03:46 | PN ---
CC: Dr. Liu; Dr. Corona; Dr. Avendaño.* PROGRESS NOTE: DATE OF FOLLOWUP: 11/26/17 HISTORY: No acute overnight events. The patient had a repeat CT scan, which was stable and showed no evidence of acute hemorrhage. He is eager to leave the hospital today. I was able to speak with both Dr. Avendaño and Dr. Corona about his hospital course and we discussed starting him on Eliquis instead of warfarin when he is ready to be anticoagulated again. I note that Dr. Avendaño explained that she had witnessed him to have a wide base gait, which was unusual for him at the end of September 2017 or early October 2017. She thought that there may have been something going on in his low back at that time. He also seemed more depressed than she had seen him. He then experienced all of these acute issues with the bleeding in his arm and into his trunk and supratherapeutic INR. HOSPITAL MEDICATIONS: 1. Aspirin 81 mg daily. 2. Metoprolol 37.5 mg in the morning. 3. Flomax 0.4 mg daily. PHYSICAL EXAMINATION: Vital Signs: Temperature 97.6, blood pressure 130/61, heart rate 86, oxygen saturation 100% on room air. The patient was not formally reexamined today as the majority of the visit spent in discussion of risks and benefits of anticoagulation and timing. On observation he moved to sit at the edge of his bed easily. Left arm swelling and resolving ecchymosis. His speech was fluent without aphasia. He looked spontaneously in all directions. He had grossly full power in all of his extremities. LABORATORY DATA: His CBC shows stable hematocrit of 28. Review of his chemistry panel from 11/24/17 shows normal renal function with a creatinine of 1.04. CT of the brain was reviewed as described above. IMPRESSION: Preston Henderson is an 87-year-old man with atrial fibrillation who has been off Coumadin secondary to bleeding into his left arm with extension into his trunk in mid October 2017. He came in to the hospital for shortness of breath and a CT scan instantly discovered an ischemic stroke, which when examined under MRI showed that there had been hemorrhagic transformation. I discussed the MRI scan with Dr. Piedra today and he agreed that the age of the hemorrhagic transformation was around 7 days. I think that the best timing in terms of his intracerebral hemorrhage for re-initiation of anticoagulation would be approximately 2 weeks after the hemorrhage, which would be approximately 1 week from now. Until that time, I recommended that the patient remain on aspirin daily. I discussed with the patient that he is at a relative increased risk of stroke during this period of time, but I believe the risk of recurrent intracerebral hemorrhage to be too high to warrant re-initiation of anticoagulation just yet. In addition, given the extensive hemorrhage that he had in his arm, it seems that holding off a bit longer on anticoagulation will be prudent in this regard as well. Both Dr. Avendaño and Dr. Corona are in agreement with starting Eliquis in him in about a week if he is able to afford it. Social Work saw the patient today, indicates that he should have prescription coverage through [facility], but the patient states he is still not aware of this being the case. He has not contacted his insurance company yet to verify this and has been encouraged to do so by the high school social studies tutor. He has also been given patient assistance program paperwork to fill out if he does not have prescription drug coverage. From my perspective, he is able to be discharged home today. He should follow up with either me or Dr. Liu in approximately 1 month. [id number]/[place] #: [id number] ANNMARIE
--- NOTE | 2017-11-27 03:46 | DS ---
DISCHARGE SUMMARY: DATE OF ADMISSION: 11/24/17 DATE OF DISCHARGE: 11/26/17 ADMITTING AND ATTENDING PROVIDER: Dank Cordero MD PRIMARY CARE PHYSICIAN: Sonia Avendaño MD CONSULTING NEUROLOGIST: Dr. Liu and Dr. Navarro. CHIEF COMPLAINT: Dyspnea on exertion. PRINCIPAL DIAGNOSIS: Subacute stroke with hemorrhagic conversion. HISTORY OF PRESENT ILLNESS AND HOSPITAL COURSE: Preston Henderson is an 87-year- old male with a past medical history of atrial fibrillation until recently on Coumadin, stopped in the setting of a left arm hematoma and in the setting of supratherapeutic INR, obstructive sleep apnea not on therapy, colon cancer status post resection in 2011, hyperlipidemia. This is the patient's third emergency room visit in the last 9 days and his chief complaint is progressive shortness of breath over the last few days. He was found to have anemia stable from the last few admissions, hemoglobin 9.1, and was noted to have a new or altered medication of metoprolol 37.5 mg b.i.d. initiated just 2 days prior to admission. The patient was during the emergency room evaluation, given some generalized weakness reports to EMS, had a CT of his head which showed a subacute nonhemorrhagic infarct in the left lentiform nucleus with underlying chronic microvascular changes. Dr. Liu of Neurology was consulted. He was already ordered to get an echocardiogram given his history of pulmonary hypertension which have been classified moderate to severe in January 2016 and moderate to severe tricuspid valve regurgitation. 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 Along with this , again nonspecific white matter changes suggestive of chronic small vessel ischemia. He had been started on aspirin 81 mg upon presentation. His Coumadin had not been restarted which he had not taken in approximately 12 days. He had an A1c of 5.1, LDL of 83, and HDL of 35. He had repeat imaging on hospital day #3 which showed a stable lesion with no progression of the hemorrhage. Dr. Navarro conferred with outpatient surgical scrub technologist, Dr. Corona, along with Dr. Avendaño and hospitalist, and consensus plan was to restart the anticoagulation for his chronic atrial fibrillation with Eliquis 5 mg p.o. b.i.d., starting approximately 14 days after suspected initiation of the bleed, so 7 days after discharge based off suspected time of bleed start of 7 days prior to admission based off imaging findings. The patient worked with physical therapy and had good independence with mobility transfers without any assistive device. He had good strength on neurologic exams. He does attest to some increased exertion to create the expected volume of his voice and had been of note being worked up by Dr. Avendaño as an outpatient for initially a wide based gait and some relatively quick onset of frequent nocturia for which Dr. Avendaño had tried to order a lumbar spine MRI which the patient has not received yet given his inpatient status. The patient had followup with Dr. Lamar of Urology and started on Flomax, seen him 3 days prior to admission. He had a repeat transthoracic echo as mentioned with a preserved ejection fraction of 55 % to 60%, mild to moderate aortic regurgitation, mild to moderate mitral valve regurgitation, moderate tricuspid regurgitation and no pulmonary hypertension noted. The left atrium was severely dilated. The patient will be taking 7 days of aspirin until he starts the Eliquis and then stop the aspirin. Again, do not restart the Coumadin. DISCHARGE MEDICATIONS: Include: 1. Metoprolol tartrate 37.5 mg p.o. q.a.m. 2. Tamsulosin 0.4 mg p.o. daily. 3. Apixaban 5 mg p.o. b.i.d. (new), to be started on 12/03/17. 4. Aspirin 81 mg daily to be taken until and through 12/02/17, (new). 5. Ergocalciferol 50,000 units p.o. weekly. DIET: Heart healthy. ACTIVITY LEVEL: No restrictions. FOLLOWUP: He has scheduled followup with Sonia Avendaño on 11/29/17 at 2:30 p.m. and please call Fawn Navarro or Annette Liu to schedule a neurology followup within 4 weeks. TIME SPENT ON DISCHARGE: 40 minutes. [id number]/[facility] #: [id number] MTDYaneth
--- NOTE | 2017-12-01 14:32 | ED ---
Loly King Emily, scribed for Josr Sheridan MD on 11/24/17 at 1239 . Upper Extremity Pain - HPI Summary HPI Summary: This patient is an 87 year old M BIBA to [facility] accompanied by friend with a chief complaint of feeling a snap in his LUE while reaching for something 2 weeks ago. The patient rates the pain 0/10 in severity. Symptoms aggravated by nothing. Symptoms alleviated by nothing. Patient reports edema, weakness ( increasing daily), fatigue, and SOB (with exertion). Patient denies dizziness, lightheadedness, changes in appetite, CP, and melena. Pt reports previously breaking a blood vessel with internal bleeding. Pt reports that he stopped taking his blood thinner prescription earlier this week. - History of Current Complaint Chief Complaint: EDGeneral Stated Complaint: GENERAL ILLNESS Time Seen by Provider: 11/24/17 11:31 Hx Obtained From: Patient Mechanism Of Injury: Other Onset/Duration: Started Days Ago, Still Present Timing: Constant, Lasting Days Severity Initially: Mild Severity Currently: Mild Aggravating Factor(s): Nothing Alleviating Factor(s): Nothing Associated Signs & Symptoms: Positive: Other - Positive edema, weakness ( increasing daily), abd, fatigue, and SOB. 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 and on coumadin for this Denies: Hx Hypertension Comment Only: Hx Congestive Heart Failure - EVAL FOR CHF Respiratory History: Reports: Hx Sleep Apnea GI History: Reports: Other GI Disorders - colon ca History: Denies: Hx Dialysis, Hx Renal Disease Musculoskeletal History: Denies: Hx Rheumatoid Arthritis Sensory History: Reports: Hx Cataracts - right, Hx Contacts or Glasses Denies: Hx Hearing Aid Opthamlomology History: Reports: Hx Cataracts - right, Hx Contacts or Glasses - Cancer History Cancer Type, Location and Year: colon ca, 2011 Hx Chemotherapy: No - Surgical History Surgery Procedure, Year, and Place: [place] [facility] [place] , [place], unknown Hx Anesthesia Reactions: No - Immunization History Date of Tetanus Vaccine: utd Date of Influenza Vaccine: none Infectious Disease History: No Infectious Disease History: Denies: Hx Clostridium Difficile, Hx Hepatitis, Hx Human Immunodeficiency Virus (HIV), Hx of Known/Suspected MRSA, Hx Shingles, Hx Tuberculosis, Hx Known/ Suspected VRE, Hx Known/Suspected VRSA, History Other Infectious Disease, Traveled Outside the [place] in Last 30 Days - Family History Known Family History: Positive: Cardiac Disease, Hypertension, Diabetes - Social History Occupation: Retired Lives: Alone Alcohol Use: None Substance Use Type: Reports: None Hx Tobacco Use: Yes Smoking Status (MU): Former Smoker Amount Used/How Often: SOCIAL X 2-3 YEARS Review of Systems Positive: Fatigue. Negative: Fever, Chills Negative: Erythema Negative: Sore Throat Negative: Chest Pain Positive: Shortness Of Breath Positive: Other - Negative changes in appetite and melena. Negative: Abdominal Pain, Vomiting, Nausea Negative: dysuria, hematuria Positive: Edema, Other - Positive "snap" in LUE Negative: Rash Neurological: Other - Negative dizziness and lightheadedness Positive: Weakness All Other Systems Reviewed And Are Negative: Yes Physical Exam - Summary Physical Exam Summary: Constitutional: Well-developed, Well-nourished, Alert. (-) Distressed Skin: Warm, Dry HENT: Normocephalic; Atraumatic Eyes: Conjunctiva normal Neck: Musculoskeletal ROM normal neck. (-) JVD, (-) Stridor, (-) Tracheal deviation Cardio: Rhythm regular, rate normal, Heart sounds normal; Intact distal pulses; The pedal pulses are 2+ and symmetric. Radial pulses are 2+ and symmetric. (-) Murmur Pulmonary/Chest wall: Effort normal. (-) Respiratory distress, (-) Wheezes, (-) Rales Abd: Soft. (-) Tenderness, ~(-) Distension, (-) Guarding, (-) Rebound Musculoskeletal: Significant ecchymosis from the L chest wall to the fingertips with edema. Significant edema overlying the L bicep. Does not seem to be any strength reduction on the left side. Does not appear to have any tenderness or pain on the left side. Lymph: (-) Cervical adenopathy Neuro: Alert, Oriented x3, Strength normal, Cranial nerves II-XII are grossly intact. (-) Dysmetria, (-) Nystagmus, (-) Ataxia by finger to nose testing, (-) Sensory deficit. Psych: Mood and affect Normal Triage Information Reviewed: Yes Vital Signs On Initial Exam: Initial Vitals BP 109/40 11/24/17 09:54 Vital Signs Reviewed: Yes Diagnostics - Vital Signs Vital Signs Temp Pulse Resp BP Pulse Ox 11/24/17 12:00 80 22 121/66 99 11/24/17 11:30 78 22 112/57 98 11/24/17 11:00 74 21 120/64 100 11/24/17 10:30 80 21 118/65 99 11/24/17 10:00 77 19 131/64 100 11/24/17 09:57 97.9 F 80 16 109/40 100 11/24/17 09:55 86 99 11/24/17 09:54 109/40 - Laboratory Lab Results: Lab Results 11/24/17 11/24/17 11/24/17 Range/Units 11:40 11:40 11:40 WBC 6.0 (3.5-10.8) 10^3/ul RBC 2.88 L (4.0-5.4) 10^6/ul Hgb 9.1 L (14.0-18.0) g/dl Hct 28 L (42-52) % MCV 96 H (80-94) fL MCH 32 H (27-31) pg MCHC 33 (31-36) g/dl RDW 15 (10.5-15) % Plt Count 141 L (150-450) 10^3/ul MPV 9 (7.4-10.4) um3 Neut % (Auto) Pending Lymph % (Auto) Pending [place] % (Auto) Pending Eos % (Auto) Pending Baso % (Auto) Pending Absolute Neuts (auto) Pending Absolute Lymphs (auto) Pending Absolute Monos (auto) Pending Absolute Eos (auto) Pending Absolute Basos (auto) Pending Absolute Nucleated RBC Pending Nucleated RBC % Pending Sodium 137 (133-145) mmol/L Potassium 4.1 (3.5-5.0) mmol/L Chloride 110 (101-111) mmol/L Carbon Dioxide 21 L (22-32) mmol/L Anion Gap 6 (2-11) mmol/L BUN 26 H (6-24) mg/dL Creatinine 1.04 (0.67-1.17) mg/dL Est GFR ( Amer) 87.1 (>60) Est GFR (Non-Af Amer) 67.7 (>60) BUN/Creatinine Ratio 25.0 H (8-20) Glucose 97 (70-100) mg/dL Lactic Acid 1.0 (0.5-2.0) mmol/L Calcium 8.7 (8.6-10.3) mg/dL Magnesium 2.2 (1.9-2.7) mg/dL Total Bilirubin 2.50 H (0.2-1.0) mg/dL AST 16 (13-39) U/L ALT 16 (7-52) U/L Alkaline Phosphatase 50 (34-104) U/L Troponin I 0.01 (<0.04) ng/mL Total Protein 6.0 L (6.4-8.9) g/dL Albumin 3.4 (3.2-5.2) g/dL Globulin 2.6 (2-4) g/dL Albumin/Globulin Ratio 1.3 (1-3) TSH Pending Urine Color Urine Appearance Urine pH (5-9) Ur Specific [place] (1.010-1.030) Urine Protein (Negative) Urine Ketones (Negative) Urine Blood (Negative) Urine Nitrate (Negative) Urine Bilirubin (Negative) Urine Urobilinogen (Negative) Ur Leukocyte Esterase (Negative) Urine WBC (Auto) (Absent) Urine RBC (Auto) (Absent) Ur Squamous Epith Cells (Absent) Urine Bacteria (Absent) Urine Glucose (Negative) 11/24/17 Range/Units 12:02 WBC (3.5-10.8) 10^3/ul RBC (4.0-5.4) 10^6/ul Hgb (14.0-18.0) g/dl Hct (42-52) % MCV (80-94) fL MCH (27-31) pg MCHC (31-36) g/dl RDW (10.5-15) % Plt Count (150-450) 10^3/ul MPV (7.4-10.4) um3 Neut % (Auto) Lymph % (Auto) [place] % (Auto) Eos % (Auto) Baso % (Auto) Absolute Neuts (auto) Absolute Lymphs (auto) Absolute Monos (auto) Absolute Eos (auto) Absolute Basos (auto) Absolute Nucleated RBC Nucleated RBC % Sodium (133-145) mmol/L Potassium (3.5-5.0) mmol/L Chloride (101-111) mmol/L Carbon Dioxide (22-32) mmol/L Anion Gap (2-11) mmol/L BUN (6-24) mg/dL Creatinine (0.67-1.17) mg/dL Est GFR ( Amer) (>60) Est GFR (Non-Af Amer) (>60) BUN/Creatinine Ratio (8-20) Glucose (70-100) mg/dL Lactic Acid (0.5-2.0) mmol/L Calcium (8.6-10.3) mg/dL Magnesium (1.9-2.7) mg/dL Total Bilirubin (0.2-1.0) mg/dL AST (13-39) U/L ALT (7-52) U/L Alkaline Phosphatase (34-104) U/L Troponin I (<0.04) ng/mL Total Protein (6.4-8.9) g/dL Albumin (3.2-5.2) g/dL Globulin (2-4) g/dL Albumin/Globulin Ratio (1-3) TSH Urine Color Yellow Urine Appearance Clear Urine pH 5.0 (5-9) Ur Specific [place] 1.018 (1.010-1.030) Urine Protein Negative (Negative) Urine Ketones Negative (Negative) Urine Blood 1+ H (Negative) Urine Nitrate Negative (Negative) Urine Bilirubin Negative (Negative) Urine Urobilinogen Negative (Negative) Ur Leukocyte Esterase Negative (Negative) Urine WBC (Auto) Absent (Absent) Urine RBC (Auto) Trace(0-2/hpf) (Absent) Ur Squamous Epith Cells Present H (Absent) Urine Bacteria Absent (Absent) Urine Glucose Negative (Negative) Result Diagrams: 11/24/17 11:40 11/24/17 11:40 Lab Statement: Any lab studies that have been ordered have been reviewed, and results considered in the medical decision making process. - EKG 1138 Cardiac Rate: NL EKG Rhythm: Atrial Fibrillation - 78 BPM. With occasional PVCs EKG Interpretation: No STEMI Course/Dx - Course Assessment/Plan: Dr. Cordero understands the pt has been set up for outpatient imaging of the arm. We did make the pt aware that he could have biceps tendon rupture of the arm. - Diagnoses Provider Diagnoses: Symptomatic anemia, Arm bruise, Biceps tendon rupture - Physician Notifications Discussed Care of Patient With: Dank Cordero Time Discussed With Above Provider: 12:50 Instructed by Provider To: Other - Consult with Dr. Cordero (hospitalist) at 1250. He agrees to accept pt for further evaluation. Discharge - Discharge Plan Condition: Stable Disposition: ADMITTED TO [facility] Referrals: Sonia Avendaño MD [Primary Care Provider] - The documentation as recorded by the Loly cesar Emily accurately reflects the service I personally performed and the decisions made by , Josr Sheridan MD.
== END 2017-11-26 16:41 | disposition home or self-care (01) | DRG 66 ==
LOC: ED 09:50 → MED 13:23 → MEDTELE 11-25 08:33 → OBSVTOIN 11-25 09:43
PROVIDERS: ADMIT Internal Medicine; ATTEND Internal Medicine
DX: I61.0 Nontraumatic intracerebral hemorrhage in hemisphere, subcortical (principal); I48.2 Chronic atrial fibrillation; Z79.01 Long term (current) use of anticoagulants; S20.212A Contusion of left front wall of thorax, initial encounter; G47.33 Obstructive sleep apnea (adult) (pediatric); E78.5 Hyperlipidemia, unspecified; Z85.038 Personal history of other malignant neoplasm of large intestine; Z79.899 Other long term (current) drug therapy; Z82.49 Family history of ischemic heart disease and other diseases of the circulatory system; Z80.0 Family history of malignant neoplasm of digestive organs; Z87.891 Personal history of nicotine dependence; Z95.0 Presence of cardiac pacemaker
CPT/HCPCS: 36415; 70450; 70552; 71046; 80053; 80061; 81003; 81015; 82728; 83036; 83540; 83550; 83605; 83735; 83880; 84443; 84484; 85025; 85610; 85730; 86850; 86900; 86901; 93005; 93306; A9270-GY; A9579; G0378

== ENCOUNTER 2020-07-01 15:09 | Inpatient (IN) ==
[2020-07-01] MEDS ORDERED: NS 0.9% 1000 ml BAG 1,000 ML IV ONE (15:14)
[2020-07-01] MEDS ORDERED: Tetan/Diph/Pertus SYR(Tdap) 0.5 ML SYR(BOOSTRIX) use SYR contains LATEX IM ONE (15:16)
[2020-07-01 16:41] LABS: Hematocrit 33 % (42-52); Hemoglobin 11.4 g/dL (14.0-18.0); Mean Corpuscular HGB Conc 35 g/dL (31-36); Mean Corpuscular Hemoglobin 33 pg (27-31); Mean Corpuscular Volume 94 fL (80-94); Mean Platelet Volume 9.3 fL (7.4-10.4); Platelet Count 121 10^3/uL (150-450); Red Blood Count 3.48 10^6 /uL (4.18-5.48); Red Cell Distribution Width 17 % (10-15); White Blood Count 7.7 10^3/uL (3.5-10.8)
[2020-07-01 16:57] LABS: Troponin I 0.01 ng/mL (<0.03)
[2020-07-01 16:59] LABS: Urine Appearance Clear; Urine Bilirubin Negative (Negative); Urine Blood Negative (Negative); Urine Color Yellow; Urine Glucose Negative (Negative); Urine Ketones Negative (Negative); Urine Nitrite Negative (Negative); Urine Protein Negative (Negative); Urine Specific Gravity 1.018 (1.010-1.030); Urine Urobilinogen Negative (Negative)
[2020-07-01 17:01] LABS: INR 1.19 (0.82-1.09)
[2020-07-01 17:17] LABS: Albumin 4.2 g/dL (3.2-5.2); Albumin/Globulin Ratio 1.7 (1-3); BUN/Creatinine Ratio 26.7 (8-20); Calcium 9.6 mg/dL (8.6-10.3); EGFR African American 69.1 (>60); EGFR Non-African American 57.1 (>60); Globulin 2.5 g/dL (2-4); Magnesium 2.3 mg/dL (1.9-2.7); Potassium 4.4 mmol/L (3.5-5.0); Total Bilirubin 1.3 mg/dL (0.2-1.0); Total Protein 6.7 g/dL (6.4-8.9)
[2020-07-01 17:21] LABS: Activated Partial Thrombo Time 30.6 seconds (26.0-38.0)
[2020-07-01 17:30] LABS: TSH Ultra Thyroid Stim Horm 2.16 mcIU/mL (0.34-5.60)
[2020-07-01] MEDS ORDERED: Oxymetazoline 0.05% NASAL SPR 15 ML BTL BOTH NARES ONE (17:57)
[2020-07-01 18:01] LABS: ABS Lymphocytes 0.9 10^3/ul (1.0-4.8); ABS Monocytes 1.6 10^3/ul (0-0.8); ABS Neutrophils 5.1 10^3/ul (1.5-7.7); Eosinophil % 0.5 %; Lymphocyte % 12.4 %
[2020-07-01] MEDS ORDERED: Ondansetron 4 mg VIAL 2 MG/ML 2 ml VIAL IV PRN (19:39)
[2020-07-01 20:29] LABS: Folate 9.01 ng/mL (>3.99)
[2020-07-02 06:24] LABS: BUN/Creatinine Ratio 28.7 (8-20); Calcium 8.9 mg/dL (8.6-10.3); EGFR African American 78.1 (>60); EGFR Non-African American 64.5 (>60)
[2020-07-02] MEDS: Senna TAB 8.6 mg TAB PO PRN (20:22)
[2020-07-04 06:53] LABS: Hematocrit 30 % (42-52); Hemoglobin 10.5 g/dL (14.0-18.0); Mean Corpuscular HGB Conc 36 g/dL (31-36); Mean Corpuscular Hemoglobin 33 pg (27-31); Mean Corpuscular Volume 93 fL (80-94); Mean Platelet Volume 9.3 fL (7.4-10.4); Platelet Count 98 10^3/uL (150-450); Red Blood Count 3.18 10^6 /uL (4.18-5.48); Red Cell Distribution Width 17 % (10-15); White Blood Count 6.1 10^3/uL (3.5-10.8)
[2020-07-04 07:08] LABS: BUN/Creatinine Ratio 30.9 (8-20); Calcium 9.2 mg/dL (8.6-10.3); EGFR African American 88.4 (>60); Potassium 4.1 mmol/L (3.5-5.0)
[2020-07-04 07:34] LABS: ABS Lymphocytes 0.9 10^3/ul (1.0-4.8); ABS Monocytes 1.4 10^3/ul (0-0.8); ABS Neutrophils 3.7 10^3/ul (1.5-7.7); Eosinophil % 0.7 %; Lymphocyte % 14.7 %
[2020-07-04] MEDS: Senna TAB 8.6 mg TAB PO PRN ×2 (09:07→22:44)
[2020-07-05 09:03] LABS: Hematocrit 34 % (42-52); Hemoglobin 11.3 g/dL (14.0-18.0); Mean Corpuscular HGB Conc 34 g/dL (31-36); Mean Corpuscular Hemoglobin 32 pg (27-31); Mean Corpuscular Volume 94 fL (80-94); Mean Platelet Volume 9.2 fL (7.4-10.4); Platelet Count 119 10^3/uL (150-450); Red Blood Count 3.58 10^6 /uL (4.18-5.48); Red Cell Distribution Width 17 % (10-15); White Blood Count 6.8 10^3/uL (3.5-10.8)
[2020-07-05 09:39] LABS: ABS Eosinophils 0.1 10^3/ul (0-0.6); ABS Lymphocytes 1.2 10^3/ul (1.0-4.8); ABS Monocytes 1.3 10^3/ul (0-0.8); ABS Neutrophils 4.3 10^3/ul (1.5-7.7); Eosinophil % 0.9 %; Lymphocyte % 17.1 %
[2020-07-05] MEDS: Senna TAB 8.6 mg TAB PO PRN (10:30)
[2020-07-05] MEDS ORDERED: Polyethylene Glycol 3350 17 GM PACKET PO PRN (10:36)
[2020-07-05 11:18] VITALS: BP 95/52
== END 2020-07-05 15:45 | disposition home health service (06) | DRG 312 ==
LOC: ED 15:09 → MEDTELE 15:09 → MED 18:59
PROVIDERS: ADMIT Internal Medicine; ATTEND Internal Medicine

== ENCOUNTER 2020-07-13 12:23 | Inpatient (IN) ==
[2020-07-13] MEDS ORDERED: Morphine 4 MG/ML VIAL (1 ml) IV ONE (12:31)
[2020-07-13 14:03] LABS: Hematocrit 32 % (42-52); Hemoglobin 10.9 g/dL (14.0-18.0); Mean Corpuscular HGB Conc 34 g/dL (31-36); Mean Corpuscular Hemoglobin 33 pg (27-31); Mean Corpuscular Volume 95 fL (80-94); Mean Platelet Volume 9.8 fL (7.4-10.4); Platelet Count 109 10^3/uL (150-450); Red Blood Count 3.35 10^6 /uL (4.18-5.48); Red Cell Distribution Width 17 % (10-15); White Blood Count 7.3 10^3/uL (3.5-10.8)
[2020-07-13 14:07] LABS: INR 1.35 (0.82-1.09)
[2020-07-13 14:20] LABS: BUN/Creatinine Ratio 27.3 (8-20); Calcium 9.4 mg/dL (8.6-10.3); EGFR African American 76.4 (>60); EGFR Non-African American 63.2 (>60)
[2020-07-13 14:43] LABS: ABS Eosinophils 0.1 10^3/ul (0-0.6); ABS Lymphocytes 0.9 10^3/ul (1.0-4.8); ABS Monocytes 1.6 10^3/ul (0-0.8); ABS Neutrophils 4.7 10^3/ul (1.5-7.7); Eosinophil % 0.8 %; Lymphocyte % 12.2 %
[2020-07-13 15:18] LABS: Potassium 4.6 mmol/L (3.5-5.0)
[2020-07-13] MEDS ORDERED: NS 0.9% 1000 ml BAG 1,000 ML IV ONE (15:39)
[2020-07-13 16:05] LABS: Hematocrit 29 % (42-52); Hemoglobin 10.1 g/dL (14.0-18.0); Mean Corpuscular HGB Conc 35 g/dL (31-36); Mean Corpuscular Hemoglobin 33 pg (27-31); Mean Corpuscular Volume 94 fL (80-94); Mean Platelet Volume 9.4 fL (7.4-10.4); Platelet Count 104 10^3/uL (150-450); Red Cell Distribution Width 17 % (10-15); White Blood Count 7.6 10^3/uL (3.5-10.8)
[2020-07-13 16:14] LABS: ABS Monocytes 1.6 10^3/ul (0-0.8); Eosinophil % 0.6 %; Lymphocyte % 13.3 %
[2020-07-13] MEDS ORDERED: Morphine 2 MG/ML SYRINGE IV PRN (16:21)
[2020-07-13] MEDS ORDERED: NS 0.9% 500 ml BAG 500 ML IV ONE (22:36)
[2020-07-14 06:01] LABS: ABS Eosinophils 0.1 10^3/ul (0-0.6); ABS Lymphocytes 1.1 10^3/ul (1.0-4.8); ABS Monocytes 1.6 10^3/ul (0-0.8); ABS Neutrophils 4.4 10^3/ul (1.5-7.7); Eosinophil % 0.9 %; Hematocrit 24 % (42-52); Hemoglobin 8.4 g/dL (14.0-18.0); Lymphocyte % 15.2 %; Mean Corpuscular HGB Conc 34 g/dL (31-36); Mean Corpuscular Hemoglobin 33 pg (27-31); Mean Corpuscular Volume 94 fL (80-94); Mean Platelet Volume 9.6 fL (7.4-10.4); Platelet Count 94 10^3/uL (150-450); Red Blood Count 2.57 10^6 /uL (4.18-5.48); Red Cell Distribution Width 17 % (10-15); White Blood Count 7.1 10^3/uL (3.5-10.8)
[2020-07-14 06:12] LABS: Anion Gap 4 mmol/L (2-11); BUN/Creatinine Ratio 30.6 (8-20); Blood Urea Nitrogen 38 mg/dL (6-24); CO2 Carbon Dioxide 25 mmol/L (22-32); Calcium 8.8 mg/dL (8.6-10.3); Chloride 108 mmol/L (101-111); EGFR African American 66.6 (>60); Glucose 103 mg/dL (70-100); Potassium 4.3 mmol/L (3.5-5.0); Sodium 137 mmol/L (135-145)
[2020-07-14 13:00] LABS: % Iron Saturation 20 % (15-55); Iron 42 ug/dL (50-212); Total Iron Binding Capacity 211 mcg/dL (250-450); Transferrin 151 mg/dL (203-362); Unsaturated Iron Binding < 196 ug/dL
[2020-07-14 13:13] LABS: Ferritin 270.5 ng/mL (24-336)
[2020-07-14] MEDS ORDERED: Iron Sucrose 200 MG in NS 0.9% 100 ml BAG 100 ML IVPB ONE (14:30)
[2020-07-15 06:33] LABS: ABS Eosinophils 0.1 10^3/ul (0-0.6); ABS Lymphocytes 1.1 10^3/ul (1.0-4.8); ABS Monocytes 1.6 10^3/ul (0-0.8); ABS Neutrophils 4.3 10^3/ul (1.5-7.7); Eosinophil % 0.9 %; Hematocrit 23 % (42-52); Hemoglobin 7.6 g/dL (14.0-18.0); Mean Corpuscular HGB Conc 34 g/dL (31-36); Mean Corpuscular Hemoglobin 32 pg (27-31); Mean Corpuscular Volume 95 fL (80-94); Mean Platelet Volume 9.6 fL (7.4-10.4); Platelet Count 87 10^3/uL (150-450); Red Blood Count 2.39 10^6 /uL (4.18-5.48); Red Cell Distribution Width 17 % (10-15); White Blood Count 7.1 10^3/uL (3.5-10.8)
[2020-07-15 06:49] LABS: Calcium 8.9 mg/dL (8.6-10.3); EGFR African American 79.8 (>60); EGFR Non-African American 65.9 (>60); Potassium 4.6 mmol/L (3.5-5.0)
[2020-07-15] MEDS ORDERED: Iron Sucrose 20 MG/ML 5 ML VIAL IV PUSH ONE (10:46)
[2020-07-15] MEDS ORDERED: Iron Sucrose 200 MG in NS 0.9% 100 ml BAG 100 ML IVPB ONE (11:02)
[2020-07-15] MEDS: Iron Sucrose 200 MG in NS 0.9% 100 ml IVPB ONE ×2 (11:43→12:39)
[2020-07-16 06:46] LABS: Hematocrit 24 % (42-52); Hemoglobin 8.3 g/dL (14.0-18.0)
[2020-07-16 11:37] VITALS: BP 135/62
== END 2020-07-16 11:27 | DRG 812 ==
LOC: MEDTELE 12:23 → ED 12:23 → MEDTELE 18:23
PROVIDERS: ADMIT Student in an Organized Health Care Education/Training Program; ATTEND Internal Medicine